=== PATIENT | female | born 1970 | race Caucasian/White ===

== ENCOUNTER 2017-05-31 09:16 | Emergency (ER) | payer OTHER ==
[2017-05-31] MEDS ORDERED: Ibuprofen TAB* 600 MG PO ONE (09:54)
--- NOTE | 2017-05-31 09:57 | UC ---
Throat Pain/Nasal Chris HPI - HPI Summary HPI Summary: Chills, Sore throat Nausea for 1 day - History of Current Complaint Chief Complaint: UCRespiratory Stated Complaint: SORE THROAT Time Seen by Provider: 05/31/17 09:49 Hx Obtained From: Patient Hx Last Menstrual Period: 3 WEEKS AGO ?: No Onset/Duration: Sudden Onset, Lasting Days - 1, Still Present Severity: Moderate Pain Intensity: 6 Pain Scale Used: 0-10 Numeric Cough: None Associated Signs & Symptoms: Positive: Fever - Allergies/Home Medications Allergies/Adverse Reactions: Allergies Allergy/AdvReac Type Severity Reaction Status Date / Time SEASONAL HAYFEVER Allergy Congestion Uncoded 05/31/17 09:55 Home Medications: Home Medications Metoprolol Tartrate TAB* [Lopressor TAB*] 25 mg PO DAILY 05/31/17 [History Confirmed 05/31/17] Omeprazole CAP* [Prilosec CAP* 20 MG] 20 mg PO DAILY 05/31/17 [History Confirmed 05/31/17] PMH/Surg Hx/FS Hx/Imm Hx Previously Healthy: No Cardiovascular History: Hypertension GI/ History: Gastroesophageal Reflux - Surgical History Surgical History: Yes Surgery Procedure, Year, and Place: 1996 LAPAROSCOPIC CHOLECYSTECTOMY, [facility] - Family History Known Family History: Positive: None - Social History Occupation: Unemployed Lives: With Family Alcohol Use: None Substance Use Type: None Smoking Status (MU): Former Smoker Review of Systems Constitutional: Chills, Fatigue Skin: Negative Eyes: Negative ENT: Sore Throat Respiratory: Negative Cardiovascular: Negative Gastrointestinal: Negative Genitourinary: Negative Motor: Negative Neurovascular: Negative Musculoskeletal: Negative Neurological: Negative Psychological: Negative Is Patient Immunocompromised?: No All Other Systems Reviewed And Are Negative: Yes Physical Exam Triage Information Reviewed: Yes Appearance: Well-Appearing, No Pain Distress, Well-Nourished Vital Signs Reviewed: Yes Eye Exam: Normal Eyes: Positive: Conjunctiva Clear ENT Exam: Normal ENT: Positive: Normal ENT inspection, Hearing grossly normal, Pharynx normal, TMs normal, Uvula midline. Negative: Nasal congestion, Tonsillar swelling, Tonsillar exudate, Trismus, Muffled voice, Hoarse voice, Sinus tenderness Dental Exam: Normal Neck exam: Normal Neck: Positive: Supple, Nontender, No Lymphadenopathy Respiratory Exam: Normal Respiratory: Positive: Chest non-tender, Lungs clear, Normal breath sounds, No respiratory distress, No accessory muscle use Cardiovascular Exam: Normal Cardiovascular: Positive: RRR, No Murmur, Pulses Normal, Brisk Capillary Refill Musculoskeletal Exam: Normal Musculoskeletal: Positive: Strength Intact, ROM Intact Neurological Exam: Normal Neurological: Positive: Alert, Muscle Tone Normal Psychological Exam: Normal Skin Exam: Normal Diagnostics - Laboratory Diagnostic Studies Completed/Ordered: RST (-) Throat Pain/Nasal Course/Dx - Course Assessment/Plan: Increase fluids rest tylenol Ibuprofen follow with pcp - Differential Dx/Diagnosis Provider Diagnoses: Viral illness, Hypertension in poor control Discharge - Discharge Plan Condition: Stable Disposition: HOME Patient Education Materials: Ibuprofen (By mouth), Pharyngitis (ED), Viral Syndrome (ED), Hypertension (ED) Referrals: Deirdre López MD [Primary Care Provider] - 1 Week
[2017-05-31 10:05] VITALS: BP 178/98
== END 2017-05-31 10:18 | disposition home or self-care (01) ==
LOC: UCCORT 09:16
DX: B34.9 Viral infection, unspecified (principal); I10 Essential (primary) hypertension; K21.9 Gastro-esophageal reflux disease without esophagitis; Z87.891 Personal history of nicotine dependence
CPT/HCPCS: 87651; 99212; A9270-GY; G0463

== ENCOUNTER 2019-03-06 12:24 | Emergency (ER) | payer OTHER ==
[2019-03-06 12:38] VITALS: BP 133/80
--- NOTE | 2019-03-06 12:50 | ED ---
Throat Pain/Nasal Congestion - HPI Summary HPI Summary: 48 yr old with about 2 days of sore throat, and also a slight cough. No runny nose or fever. She has felt tired. No drooling or stridor. The patient has moderate symptoms. No other complaints. - History of Current Complaint Chief Complaint: UCGeneralIllness Time Seen by Provider: 03/06/19 12:32 - Allergies/Home Medications Allergies/Adverse Reactions: Allergies Allergy/AdvReac Type Severity Reaction Status Date / Time No Known Allergies Allergy Verified 03/06/19 12:34 Home Medications: Home Medications Fexofenadine (NF) [Ju (NF)] mg PO ONCE 03/06/19 [History] PMH/Surg Hx/FS Hx/Imm Hx Cardiovascular History: Reports: Hx Hypertension Denies: Hx Pacemaker/ICD Respiratory History: Reports: Hx Chronic Obstructive Pulmonary Disease (COPD) Sensory History: Reports: Hx Contacts or Glasses - GLASSES Denies: Hx Hearing Aid Opthamlomology History: Reports: Hx Contacts or Glasses - GLASSES Psychiatric History: Denies: Hx Panic Disorder - Surgical History Surgery Procedure, Year, and Place: Cholecystectomy, 1996, [place] Hx Anesthesia Reactions: Yes - NAUSEA AND VOMITING Infectious Disease History: No Infectious Disease History: Denies: History Other Infectious Disease, Traveled Outside the [place] in Last 30 Days - Family History Known Family History: Positive: None - Social History Occupation: Employed Full-time Alcohol Use: Rare Substance Use Type: Reports: None Smoking Status (MU): Former Smoker Type: Cigarettes Length of Time of Smoking/Using Tobacco: ~1/2 PPD x 20 Years Review of Systems Positive: Sore Throat Positive: Cough All Other Systems Reviewed And Are Negative: Yes Physical Exam Triage Information Reviewed: Yes Vital Signs On Initial Exam: Initial Vitals Temp Pulse Resp BP Pulse Ox 99.2 F 72 16 133/80 100 03/06/19 12:33 03/06/19 12:33 03/06/19 12:33 03/06/19 12:33 03/06/19 12:33 Vital Signs Reviewed: Yes Appearance: Positive: Well-Appearing, No Pain Distress Skin: Positive: Warm, Skin Color Reflects Adequate Perfusion Head/Face: Positive: Normal Head/Face Inspection Eyes: Positive: EOMI ENT: Positive: Pharyngeal erythema, TMs normal Respiratory/Lung Sounds: Positive: Clear to Auscultation, Breath Sounds Present Cardiovascular: Positive: RRR. Negative: Murmur Abdomen Description: Negative: Distended Musculoskeletal: Positive: Strength/ROM Intact Neurological: Positive: Sensory/Motor Intact, Alert, Oriented to Person Place, Time, CN Intact II-III, Normal Gait, Speech Normal Psychiatric: Positive: Normal - [place] Coma Scale Best Eye Response: 4 - Spontaneous Best Motor Response: 6 - Obeys Commands Best Verbal Response: 5 - Oriented Coma Scale Total: 15 Diagnostics - Vital Signs Vital Signs Temp Pulse Resp BP Pulse Ox 03/06/19 12:33 99.2 F 72 16 133/80 100 - Laboratory Lab Statement: Any lab studies that have been ordered have been reviewed, and results considered in the medical decision making process. EENT Course/Dx - Course Course Of Treatment: 48 yr old with pharyngitis. neg rapid strep - Diagnoses Provider Diagnoses: Upper respiratory infection Discharge ED - Sign-Out/Discharge Documenting (check all that apply): Patient Departure All imaging exams completed and their final reports reviewed: No Studies - Discharge Plan Condition: Good Disposition: HOME Patient Education Materials: Upper Respiratory Infection (ED) Referrals: Deirdre López MD [Primary Care Provider] - 3 Days - Billing Disposition and Condition Condition: GOOD Disposition: Home
== END 2019-03-06 13:05 | disposition home or self-care (01) ==
LOC: UCCORT 12:24
DX: J06.9 Acute upper respiratory infection, unspecified (principal); I10 Essential (primary) hypertension; Z87.891 Personal history of nicotine dependence
CPT/HCPCS: 87651; 99211; G0463

== ENCOUNTER 2019-03-09 12:54 | Emergency (ER) | payer OTHER ==
[2019-03-09 13:07] VITALS: BP 158/93
--- NOTE | 2019-03-09 13:27 | UC ---
Throat Pain/Nasal Chris HPI - HPI Summary HPI Summary: 48 y/o female presents to the urgent care c/o nasal congestion w/ yellowish nasal discharge, sinus pain, sore throat for the past week. Pt reports dry cough is getting worse, specially at night time unable to sleep well due to cough. Pt state low grade fever the first day of symptoms. Sore throat is 5/10 specially in the morning. w/ moderate yellowish PND and B/L ear pressure. Pt denies dizziness, SOB, abdominal pain, N/V/D, tinnitus. - History of Current Complaint Chief Complaint: UCGeneralIllness Stated Complaint: SORE THROAT COUGH CONGESTION Time Seen by Provider: 03/09/19 13:10 Hx Obtained From: Patient Hx Last Menstrual Period: 3 WEEKS AGO ?: No Onset/Duration: Gradual Onset, Lasting Weeks - 1 week, Still Present Severity: Moderate Pain Intensity: 5 - sore throat and sinus pain Pain Scale Used: 0-10 Numeric Cough: Nonproductive Associated Signs & Symptoms: Positive: Sinus Discomfort, Nasal Discharge - yellowish. Negative: Dysphagia, Wheezing, Fever - Epiglottits Risk Factors Epiglottis Risk Factors: Negative - Allergies/Home Medications Allergies/Adverse Reactions: Allergies Allergy/AdvReac Type Severity Reaction Status Date / Time No Known Allergies Allergy Verified 03/09/19 13:08 Home Medications: Home Medications Hydrochlorothiazide TAB* [Hydrodiuril TAB*] 12.5 mg PO DAILY 03/09/19 [History Confirmed 03/09/19] amLODIPine TAB* [Norvasc 5 mg TAB*] 1 tab PO DAILY 03/09/19 [History Confirmed 03/09/19] PMH/Surg Hx/FS Hx/Imm Hx Previously Healthy: Yes Cardiovascular History: Hypertension - Surgical History Surgical History: Yes Surgery Procedure, Year, and Place: Cholecystectomy, 1996, [facility] - Family History Known Family History: Positive: Hypertension - Social History Occupation: Employed Full-time Lives: With Family Alcohol Use: Rare Substance Use Type: None Smoking Status (MU): Former Smoker Type: Cigarettes Length of Time of Smoking/Using Tobacco: ~1/2 PPD x 20 Years When Did the Patient Quit Smoking/Using Tobacco: 2005 - Immunization History Most Recent Influenza Vaccination: MAR 2017 Review of Systems All Other Systems Reviewed And Are Negative: Yes Constitutional: Positive: Negative Skin: Positive: Negative Eyes: Positive: Negative ENT: Positive: Sore Throat, Ear Ache - b/L ear pressure, Nasal Discharge - yellowish, Sinus Congestion, Sinus Pain/Tenderness, Other - moderate yellowish PND Respiratory: Positive: Cough - dry Cardiovascular: Positive: Negative Gastrointestinal: Positive: Negative Genitourinary: Positive: Negative Motor: Positive: Negative Neurovascular: Positive: Negative Musculoskeletal: Positive: Negative Neurological: Positive: Headache Psychological: Positive: Negative Is Patient Immunocompromised?: No Physical Exam - Summary Physical Exam Summary: Vitals: reviewed General: Well developed, well-nourished female patient with NAD. Head and face: Normocephalic and atraumatic, Positive tenderness over the frontal and maxillary sinuses.. Eyes: PERRLA, EOMI x 2. Normal conjunctiva. No eye discharge. ENT: Ears and TM with normal limits. Nose: edematous and erythematous nasal mucosa with with yellowish discharge and erythematous mucosa. Pharynx with erythema, no exudate. moderate yellowish PND Neck: Supple, no JVD, no carotid bruits and no lymphadenopathy. Lungs: clear, no rales, no rhonchi, no wheezes. CVS: RRR, S1 and S2 present no murmurs or gallops appreciated. Abdomen: soft nontender with positive bowel sounds. Extremities: no edema noted. Neuro: WNL. Skin: warm and dry Triage Information Reviewed: Yes Vital Signs: Initial Vital Signs Temp 97.9 F 03/09/19 13:05 Pulse 95 03/09/19 13:05 Resp 16 03/09/19 13:05 BP 158/93 03/09/19 13:05 Pulse Ox 100 03/09/19 13:05 Throat Pain/Nasal Course/Dx - Course Course Of Treatment: 48 y/o female presents to the urgent care c/o nasal congestion w/ yellowish nasal discharge, sinus pain, sore throat for the past week. Pt reports dry cough is getting worse, specially at night time unable to sleep well due to cough. Pt state low grade fever the first day of symptoms. Sore throat is 5/10 specially in the morning. w/ moderate yellowish PND and B/L ear pressure. Pt denies dizziness, SOB, abdominal pain, N/V/D, tinnitus. Hx obtained. Pt with 1 week of symptoms getting worse. Pt Rx Amoxicillin PO and flonase nasal spray. Tessalon PO for cough. Discharge instructions explained to Pt. Advised to Return to the clinic or PCP if symptoms do not improve. Pt's BP is elevated today advised to decrease salt in diet, monitor BP and f/u with PCP for further management. Pt understood and agreed with plan of care. - Differential Dx/Diagnosis Differential Diagnosis/HQI/PQRI: Influenza, Laryngitis, Pharyngitis, Sinusitis, Tonsillitis, URI, Other - bronchitis Provider Diagnosis: Acute bacterial sinusitis, Cough, Uncontrolled hypertension Discharge ED - Sign-Out/Discharge Documenting (check all that apply): Patient Departure All imaging exams completed and their final reports reviewed: No Studies - Discharge Plan Condition: Stable Disposition: HOME Prescriptions: Amoxicillin PO (*) [Amoxicillin 500 MG CAP*] 500 mg PO Q12H #20 cap Benzonatate CAP* [Tessalon 100 MG CAP*] 100 mg PO TID #21 cap Fluticasone NASAL SPRAY 50MCG* [Flonase NASAL SPRAY 50MCG*] 2 spray BOTH NARES DAILY #1 btl Patient Education Materials: Sinusitis (ED) Referrals: Deirdre López MD [Primary Care Provider] - 3 Days Additional Instructions: 1- Please increase fluid intake and rest. take full course of antibiotic to avoid resistance. Take yogurt w/ probiotics or culturelle to protect your GI system 2-Use Flonase as directed to help drain fluid. Also buy saline drops to clear sinuses 3-Take Tessalon tabs PO to alleviates cough 4-Return to the clinic or PCP if symptoms do not improve for further management and treatment 5- Your BP is elevated today. please decrease salt in your diet, monitor BP and if it continues to be elevated please f/u with your PCP for further management. - Billing Disposition and Condition Condition: STABLE Disposition: Home
== END 2019-03-09 13:38 | disposition home or self-care (01) ==
LOC: UCEAST 12:54
DX: R05 Cough (principal); J01.80 Other acute sinusitis; B96.89 Other specified bacterial agents as the cause of diseases classified elsewhere; I10 Essential (primary) hypertension; Z87.891 Personal history of nicotine dependence
CPT/HCPCS: 99212; G0463

== ENCOUNTER 2019-04-19 10:16 | Emergency (ER) | payer OTHER ==
--- OUTSIDE RECORDS SUMMARY | 2019-04-19 10:22 | XMS REPORT | Continuity of Care Document ---
:1970 External Reference #:[id number] Author Name Deirdre López M.D. 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 Onset: 09/22/2010 Dysthymia Deirdre López M.D. Onset: 09/22/2010 Hypothyroidism Deirdre López M.D. Onset: 09/22/2010 Acute pharyngitis Escobar Fernandez MD Onset: 07/09/2011 Abscess of vulva Escobar Fernandez MD Onset: 10/17/2013 Social History Type Date Description Comments Sex Unknown Tobacco Use Start: Unknown Current Cigarette Smoker 1 Pack Daily ETOH Use Occasionally consumes alcohol Recreational Drug Use Denies Drug Use Tobacco Use Start: Unknown End: Patient is a former smoker Unknown Allergies, Adverse Reactions, Alerts Active Allergies Reaction Severity Comments Date NKDA 09/22/2010 Nka 09/02/2005 Medications Active Medications SIG Qnty Indications Ordering Date Provider Clarithromycin 1 by mouth 30tabs J01.90 Deirdre López, 04/03/2019 500mg Tablets twice a day M.D. with food Hydrochlorothiazide 1 by mouth 90tabs Deirdre López, 10/24/2018 25mg Tablets every day M.D. Nifedipine ER 1 tab by mouth 90tabs Deirdre López, 10/03/2018 30mg Tablets ER every night at M.D. 24HR bedtime Iron 1 by mouth 90tabs D50.9 Deirdre López, 04/06/2018 325(65Fe) mg Tablets every day M.D. Norvasc 1 by mouth 90tabs Deirdre López, 12/14/2017 5mg Tablets every day M.D. Amitriptyline HCL take one tablet 90tabs Deirdre López, 11/02/2017 25mg Tablets by mouth once M.D. daily at bedtime Memory Issues The above has a Deirdre López, 11/02/2017 medical M.D. condition which can cause memory problems Oxybutynin Chloride 1 by mouth at 90tabs N39.41 Deirdre López, 09/27/2017 5mg Tablets bedtime M.D. Omeprazole Take 1 Capsule 90caps K29.00 Deirdre López, 06/18/[address] By Mouth Once M.D. Daily Metoprolol Tartrate take one tablet 180tabs K31.84 Deirdre López, 05/12/2016 25mg Tablets by mouth twice M.D. daily Melatonin 1 tab po qhs 780.52 Deirdre López, 12/12/2012 5mg Capsules M.D. B-Complex/Vitamin B-12 1 po q day 90tabs R53.82 Deirdre López, 02/07/2008 Tablets M.D. Elocon apply to skin 30Grams L25.9 Deirdre López, 08/09/2006 0.1% Cream as directed Roberta Tylenol prn Deirdre López, 09/02/2005 650 Tablets M.DLilliana Medications Administered in Office Medication SIG Qnty Indications Ordering Provider Date B-12 Injection Deirdre López M.D. 07/14/2011 Injection B-12 Injection Deirdre López M.D. 06/02/2011 Injection Immunizations CPT Code Status Date Vaccine Lot # [id number] Given 04/03/2019 Influenza Virus (Afluria) Split Virus 3 Years [id number] Of Age And Older Q2035 Given 04/04/2018 Influenza Virus (Afluria) Split Virus 3 Years Of Age And Older [id number] Given 04/04/2018 Influenza Virus Vaccine, Quadrivalent, Split, Preservative Free [id number] Given 04/26/2017 Influenza Virus (Afluria) Split Virus 3 Years Of Age And Older Q2036 Given 06/02/2011 Flulaval [id number] Given 06/02/2011 Influenza Vaccine [id number] Given 01/08/2010 Hepatitis B Vaccine [id number] Given 01/08/2010 Hepatitis B Vaccine [id number] 28035 Given 11/27/1999 DT Immunization DIP/Tet (History Only) Vital Signs Date Vital Result Comment 04/03/2019 10:43am BP Systolic 154 mmHg BP Diastolic 104 mmHg BP Systolic Recheck 144 mmHg BP Diastolic Recheck 84 mmHg Heart Rate 75 /min Height 68 inches 5'8" Weight 224.00 lb BMI (Body Mass Index) 34.1 kg/m2 O2 % BldC Oximetry 95 % 11/07/2018 2:58pm BP Systolic 150 mmHg BP Diastolic 106 mmHg BP Systolic Recheck 132 mmHg BP Diastolic Recheck 86 mmHg Height 68 inches 5'8" Weight 229.00 lb BMI (Body Mass Index) 34.8 kg/m2 Results Test Date Facility Test Result H/L Range Note Basic Metabolic Panel 03/28/2019 [facility] Glucose 137 mg/dL High 65-[address] [place], [place] [id number] [phone] Urea Nitrogen (BUN) 18 mg/dL Normal 7-25 Creatinine 0.93 mg/dL Normal 0.50-1.05 2 eGFR Non-Afr. [place] 72 mL/min/1.73m2 Normal > Or = 60 eGFR 83 mL/min/1.73m2 Normal > Or = 60 BUN/Creatinine Ratio NOT APPLICABLE (calc) 6-22 Sodium 139 mmol/L Normal 135-146 Potassium 3.9 mmol/L Normal 3.5-5.3 Chloride 98 mmol/L Normal 98-110 Carbon Dioxide 31 mmol/L Normal 20-32 Calcium 9.8 mg/dL Normal 8.6-10.4 CBC W/ 03/28/2019 [facility] White Blood 8.5 Thousand/uL Normal 3.8 -10.8 Diff & PLT [address] Cell Count [place], [place] [id number] [phone] Red Blood Cell Count 5.21 Million/uL High 3.80-5.10 Hemoglobin 14.7 g/dL Normal 11.7-15.5 Hematocrit 44.3 % Normal 35.0-45.0 MCV 85.0 fL Normal 80.0-100.0 MCH 28.2 pg Normal 27.0-33.0 MCHC 33.2 g/dL Normal 32.0-36.0 RDW 13.9 % Normal 11.0-15.0 Platelet Count 289 Thousand/uL Normal 140-400 MPV 11.0 fL Normal 7.5-12.5 Absolute Neutrophils 5891 cells/uL Normal 1508-6020 Absolute Lymphocytes 1743 cells/uL Normal 850-3900 Absolute Monocytes 502 cells/uL Normal 200-950 Absolute Eosinophils 306 cells/uL Normal 15-500 Absolute Basophils 60 cells/uL Normal 0-200 Neutrophils 69.3 % Normal 38-80 Lymphocytes 20.5 % Normal 15-49 Monocytes 5.9 % Normal 0-13 Eosinophils 3.6 % Normal 0-8 Basophils 0.7 % Normal 0-2 Lipid Panel 03/28/2019 [facility] Cholesterol, Total 193 mg/dL Normal <[address] [place] [address] [phone] HDL Cholesterol 51 mg/dL Normal >50 Triglycerides 124 mg/dL Normal <150 LDL-Cholesterol 119 mg/dL(calc) High 3 Chol/HDLC Ratio 3.8 (calc) Normal <5.0 Non HDL Cholesterol 142 mg/dL(calc) High <130 4 Laboratory test 03/28/2019 [facility] Enhanced PDF SEE IMAGE finding [address] [place] [address] [id number] [phone] Laboratory test 03/06/2019 [facility] Rapid Strep Negative Negative [address] [place], [place] [id number] [phone] 1 Fasting reference interval For someone without known diabetes, a glucose value >125 mg/dL indicates that they may have diabetes and this should be confirmed with a follow-up test. 2 For patients >49 years of age, the reference limit for Creatinine is approximately 13% higher for people identified as -[place]. 3 Reference range: <100 Desirable range <100 mg/dL for primary prevention; <70 mg/dL for patients with CHD or diabetic patients with > or = 2 CHD risk factors. LDL-C is now calculated using the Daniel-Patience calculation, which is a validated novel method providing better accuracy than the Friedewald equation in the estimation of LDL-C. Daniel LOPEZ et al. ROSEY. 2013;310(19): 2653-7487 (http://education.Diurnal/faq/VVJ641) 4 For patients with diabetes plus 1 major ASCVD risk factor, treating to a non-HDL-C goal of <100 mg/dL (LDL-C of <70 mg/dL) is considered a therapeutic option. 5 Supervisor Product Inspection: [id number] Procedures Date Code Description Status 08/24/2012 [id number] Mammogram Completed Medical Devices Description No Information Available Encounters Type Date Location Provider Dx Diagnosis Office Visit 11/07/2018 Main Office Deirdre López M.D. I11.9 Hypertensive heart 3:00p disease without heart failure Office Visit 10/24/2018 Main Office Deirdre López M.D. I11.9 Hypertensive heart 12:00p disease without heart failure Office Visit 10/03/2018 Main Office Deirdre López M.D. I11.9 Hypertensive heart 10:45a disease without heart failure Z12.31 Encntr screen mammogram for malignant neoplasm of breast F43.21 Adjustment disorder with depressed mood R73.01 Impaired fasting glucose Assessments Date Code Description Provider 04/03/2019 I11.9 Hypertensive heart disease without heart failure Deirdre López M.D. 04/03/2019 R73.01 Impaired fasting glucose Deirdre López M.D. 04/03/2019 J01.90 Acute sinusitis, unspecified Deirdre López M.D. 11/07/2018 I11.9 Hypertensive heart disease without heart failure Deirdre López M.D. 10/24/2018 I11.9 Hypertensive heart disease without heart failure Deirdre López M.D. 10/03/2018 I11.9 Hypertensive heart disease without heart failure Deirdre López M.D. 10/03/2018 Z12.31 Encounter for screening mammogram for malignant Deirdre López M.D. neoplasm of breast 10/03/2018 F43.21 Adjustment disorder with depressed mood Deirdre López M.D. 10/03/2018 R73.01 Impaired fasting glucose Deirdre López M.D. Plan of Treatment Future Appointment(s):09/18/2019 8:15 am - Nurse at Main Peehch7610/02/2019 10: 30 am - Deirdre López M.D. at [facility] N[facility]fnba7904/04/2018 - Deirdre López M.D.I11.9 Hypertensive heart disease without heart failureComments:Continue with medication as directed. Reminded of regular exercise and the need to self monitor blood pressure regularly To call office with persistently elevated blood brckselhrZ84.21 Adjustment disorder with depressed moodComments: tolerating amitryptiline without [id number] Encounter for immunizationAllImmunizations/Injections:Influenza Virus (Afluria) Split Virus 3 Years Of Age And Older Functional Status Description No Information Available Mental Status Description No Information Available Referrals Description No Information Available
[2019-04-19 10:44] VITALS: BP 118/79
--- NOTE | 2019-04-19 11:12 | UC ---
Lower Extremity/Ankle HPI - HPI Summary HPI Summary: 48-year-old woman comes in with a chief complaint of left foot pain. Pain started yesterday while walking. No known specific trauma. Worst pain is at the left first MTP joint. It is slightly erythematous. It hurts all the time. Ambulation makes the pain worse. No ankle pain. Moving the great toe makes the pain worse. No history of gout. Took some ibuprofen which only helped minimally. - History of Current Complaint Chief Complaint: UCLowerExtremity Stated Complaint: TOE/FOOT PAIN Time Seen by Provider: 04/19/19 10:46 Hx Last Menstrual Period: 3 WEEKS AGO Pain Intensity: 8 - Allergies/Home Medications Allergies/Adverse Reactions: Allergies Allergy/AdvReac Type Severity Reaction Status Date / Time No Known Allergies Allergy Verified 04/19/19 10:37 Home Medications: Home Medications Clindamycin HCl 300 mg PO BID 04/19/19 [History Confirmed 04/19/19] PMH/Surg Hx/FS Hx/Imm Hx Previously Healthy: Yes Cardiovascular History: Hypertension GI/ History: Gastroesophageal Reflux - Surgical History Surgical History: Yes Surgery Procedure, Year, and Place: Cholecystectomy, 1996, [place] - Family History Known Family History: Positive: None, Hypertension - Social History Alcohol Use: None Substance Use Type: None Smoking Status (MU): Former Smoker Type: Cigarettes Length of Time of Smoking/Using Tobacco: ~1/2 PPD x 20 Years When Did the Patient Quit Smoking/Using Tobacco: 2005 - Immunization History Most Recent Influenza Vaccination: MAR 2017 Review of Systems All Other Systems Reviewed And Are Negative: Yes Constitutional: Positive: Negative Skin: Positive: Other - SEE HPI Eyes: Positive: Negative ENT: Positive: Negative Respiratory: Positive: Negative Cardiovascular: Positive: Negative Gastrointestinal: Positive: Negative Motor: Positive: Negative Neurovascular: Positive: Negative Musculoskeletal: Positive: Other: - SEE HPI Neurological: Positive: Negative Psychological: Positive: Negative Is Patient Immunocompromised?: No Physical Exam Triage Information Reviewed: Yes Appearance: Well-Appearing, No Pain Distress, Well-Nourished Vital Signs: Initial Vital Signs Temp 99.1 F 04/19/19 10:39 Pulse 68 04/19/19 10:39 Resp 16 04/19/19 10:39 BP 118/79 04/19/19 10:39 Pulse Ox 98 04/19/19 10:39 Vital Signs Reviewed: Yes Eye Exam: Normal Eyes: Positive: Conjunctiva Clear Neck: Positive: Supple Respiratory: Positive: No respiratory distress Musculoskeletal: Positive: Other: - Left foot is tender to palpation at the first MTP. Patient can move her toes but with pain. Capillary refill is normal. No sensation deficit. Normal dorsalis pedis pulse. Ankle is nontender to palpation Achilles tendon is nontender and intact. 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 TECHNIQUE: 3 views of the left foot were obtained. FINDINGS: There is soft tissue swelling at the first metatarsal-phalangeal joint. The bones are normal alignment. No fracture is seen. Joint spaces appear maintained. IMPRESSION: SOFT TISSUE SWELLING, NO FRACTURE IS SEEN. < Electronically signed by Amarjit Almanza MD in OV> 04/19/19 1118 Dictated By: Amarjit Almanza MD Dictated Date/Time: 04/19/191116 Transcribed Date/Time: 1116 Copy to: CC:Deirdre López MD; Gopi Francois MD Imaging - [facility] Imaging - [facility] Imaging - [facility] [address] [address] [place] [address] [place] [address] ph ([phone]) ph ([phone]) ph ([phone]) ===== End of Report Content I discussed the x-rays with the patient. No fracture seen by orthopedics. Patient's placed and a cam walking boot by nursing patient neurovascular intact after placement of a cam walking boot. Patient states she has crutches and a cane at home she'll figure out which one works better for her. Plan is drawing a uric acid here for the possibility of gout and also treating with indomethacin 50 mg by mouth 3 times a day for 7 days. Follow-up with sports medicine or orthopedics. Reevaluation sooner if worse or any questions or concerns. We discussed the possibility of infection although does not appear to be an infection at this time. Patient is on cephalexin at this time for an upper respiratory tract infection so therefore she is covered most probable causes of bacterial infection and the foot. - Differential Dx/Diagnosis Provider Diagnosis: Left foot pain Discharge ED - Sign-Out/Discharge Documenting (check all that apply): Patient Departure All imaging exams completed and their final reports reviewed: No Studies - Discharge Plan Condition: Stable Disposition: HOME Prescriptions: Indomethacin 50 mg PO TID #21 capsule Patient Education Materials: Swollen Joint (ED), Gout (ED) Referrals: Deirdre López MD [Primary Care Provider] - [facility] [Provider Group] Sharon Salinas MD [Medical Doctor] - Additional Instructions: FOLLOW UP WITH ORTHOPEDICS OR SPORTS MEDICINE. GET RECHECKED SOONER IF YOUR CONDITION WORSENS OR ANY QUESTIONS OR CONCERNS. - Billing Disposition and Condition Condition: STABLE Disposition: Home
== END 2019-04-19 12:43 | disposition home or self-care (01) ==
LOC: UCEAST 10:16
DX: M79.672 Pain in left foot (principal); I10 Essential (primary) hypertension; R23.8 Other skin changes; Z87.891 Personal history of nicotine dependence
CPT/HCPCS: 36415; 84550; 99212; G0463

== ENCOUNTER 2019-08-28 10:49 | Emergency (ER) | payer OTHER ==
[2019-08-28 11:44] VITALS: BP 155/94
[2019-08-28 12:16] LABS: Influenza A Molecular Negative (Negative); Influenza B Molecular Negative (Negative)
--- NOTE | 2019-08-28 12:26 | UC ---
Throat Pain/Nasal Chris HPI - HPI Summary HPI Summary: 49-year-old woman comes in with a chief complaint of sore throat upper respiratory tract infection symptoms for 3 days. One of her relatives recently had strep throat. Pains worse when she swallows. Rhinorrhea is yellow. Also has had body aches. When she coughs her chest hurts. - History of Current Complaint Chief Complaint: UCRespiratory Stated Complaint: RESP COMPLAINT Time Seen by Provider: 08/28/19 12:19 Hx Last Menstrual Period: 3 WEEKS AGO Pain Intensity: 5 - Allergies/Home Medications Allergies/Adverse Reactions: Allergies Allergy/AdvReac Type Severity Reaction Status Date / Time No Known Allergies Allergy Verified 08/28/19 11:45 Home Medications: Home Medications Metoprolol Tartrate TAB* [Lopressor TAB*] 25 mg PO BID 05/31/17 [History Confirmed 08/28/19] Omeprazole CAP (NF) [Prilosec CAP* 20 MG] 20 mg PO DAILY 05/31/17 [History Confirmed 08/28/19] Fexofenadine (NF) [Ju (NF)] 60 mg PO ONCE PRN 03/06/19 [History Confirmed 08/28/19] Hydrochlorothiazide TAB* [Hydrodiuril TAB*] 12.5 mg PO DAILY 03/09/19 [History Confirmed 08/28/19] Amoxicillin PO (*) [Amoxicillin 875 MG (*)] 875 mg PO BID #20 tab 08/28/19 [Rx] PMH/Surg Hx/FS Hx/Imm Hx Previously Healthy: Yes Cardiovascular History: Hypertension GI/ History: Gastroesophageal Reflux - Surgical History Surgical History: Yes Surgery Procedure, Year, and Place: Cholecystectomy, 1996, [place] - Family History Known Family History: Positive: None, Hypertension - Social History Alcohol Use: Rare Substance Use Type: None Smoking Status (MU): Former Smoker Type: Cigarettes Length of Time of Smoking/Using Tobacco: ~1/2 PPD x 20 Years When Did the Patient Quit Smoking/Using Tobacco: 2005 - Immunization History Most Recent Influenza Vaccination: MAR 2017 Review of Systems All Other Systems Reviewed And Are Negative: Yes Constitutional: Positive: Other - see hpi Skin: Positive: Negative Eyes: Positive: Negative ENT: Positive: Sore Throat, Nasal Discharge, Sinus Congestion Respiratory: Positive: Cough Cardiovascular: Positive: Other - see hpi Gastrointestinal: Positive: Negative Motor: Positive: Negative Neurovascular: Positive: Negative Musculoskeletal: Positive: Myalgia Neurological/Mental Status: Positive: Negative Psychological: Positive: Negative Is Patient Immunocompromised?: No Physical Exam Triage Information Reviewed: Yes Appearance: No Pain Distress, Well-Nourished, Ill-Appearing - mild Vital Signs: Initial Vital Signs Temp 99.8 F 08/28/19 11:40 Pulse 89 08/28/19 11:40 Resp 16 08/28/19 11:40 BP 155/94 08/28/19 11:40 Pulse Ox 97 08/28/19 11:40 Vital Signs Reviewed: Yes Eye Exam: Normal Eyes: Positive: Conjunctiva Clear ENT: Positive: Pharyngeal erythema, Nasal congestion, Nasal drainage, TMs normal Neck: Positive: Supple Respiratory: Positive: Lungs clear, Normal breath sounds, No respiratory distress Cardiovascular: Positive: RRR Musculoskeletal: Positive: Strength Intact, ROM Intact Neurological: Positive: Alert, Muscle Tone Normal Psychological: Positive: Age Appropriate Behavior Skin Exam: Normal Throat Pain/Nasal Course/Dx - Course Course Of Treatment: DISCUSSED VIRAL VERSES BACTERIAL INFECTIONS AND THE ROLE OF ANTIBIOTICS. PATIENT PREFERS TO BE ON ANTIBIOTICS AT THIS TIME. - Differential Dx/Diagnosis Provider Diagnosis: Pharyngitis, Upper respiratory infection Discharge ED - Sign-Out/Discharge Documenting (check all that apply): Patient Departure All imaging exams completed and their final reports reviewed: No Studies - Discharge Plan Condition: Stable Disposition: HOME Prescriptions: Amoxicillin PO (*) [Amoxicillin 875 MG (*)] 875 mg PO BID #20 tab Patient Education Materials: Pharyngitis (ED), Upper Respiratory Infection (ED) Referrals: Deirdre López MD [Primary Care Provider] - Additional Instructions: FOLLOW UP WITH YOUR DOCTOR IF NOT COMPLETELY IMPROVED. GET REEVALUATED SOONER IF NOT IMPROVED OR WORSE OR ANY QUESTIONS OR CONCERNS. - Billing Disposition and Condition Condition: STABLE Disposition: Home
== END 2019-08-28 12:30 | disposition home or self-care (01) ==
LOC: UCEAST 10:49
DX: J02.9 Acute pharyngitis, unspecified (principal); J06.9 Acute upper respiratory infection, unspecified; I10 Essential (primary) hypertension; K21.9 Gastro-esophageal reflux disease without esophagitis; Z79.899 Other long term (current) drug therapy; Z87.891 Personal history of nicotine dependence
CPT/HCPCS: 99212; G0463